=== PATIENT | male | born 1970 | race Caucasian/White ===

== ENCOUNTER 2016-08-09 22:31 | Emergency (ER) | payer SELFPAY ==
[~2016-08-09] VITALS: Ht 165.1 cm; Wt 59.0 kg
[2016-08-09 23:17] VITALS: BP 144/94; PULSE 86; RESP 17; TEMP 98.6; O2SAT 99
[2016-08-10 00:45] VITALS: BP 120/72; PULSE 66; RESP 15; TEMP 98.6; O2SAT 99
== END 2016-08-10 00:45 | disposition home or self-care (01) ==
LOC: SED 22:31
DX: N53.9 Unspecified male sexual dysfunction (principal)
CPT/HCPCS: 99281